=== PATIENT | female | born 2005 | race Caucasian/White ===

== ENCOUNTER 2024-02-13 12:49 | Emergency (ER) | payer OTHER ==
[~2024-02-13] VITALS: Ht 170.2 cm; Wt 70.0 kg
[2024-02-13] MEDS ORDERED: KETOROLAC 30MG/ML VIAL IM ONE (13:00)
[2024-02-13] MEDS: HYDROCODONE/ACETAMINOPHEN 5/325MG TABLET PO ONE (14:00)
[2024-02-13] MEDS ORDERED: CYCL5TAB3 MT (14:54)
[2024-02-13] MEDS ORDERED: IBUP-2030 MT (14:54)
[2024-02-13 15:08] VITALS: TEMP 36.78072; O2SAT 98
[2024-02-13 15:09] VITALS: BP 111/57; PULSE 74; RESP 16
[2024-02-13] MEDS: KETOROLAC 30MG/ML VIAL IM NR (15:09)
== END 2024-02-13 15:09 | disposition home or self-care (01) ==
LOC: ER 13:02
DX: M54.2 Cervicalgia (principal)
CPT/HCPCS: 72040; 99283